=== PATIENT | male | born 1980 | race Caucasian/White ===

== ENCOUNTER 2018-09-15 14:48 | Emergency (ER) | payer BC ==
[2018-09-15] MEDS ORDERED: Ketorolac 30 MG/ML SDV IVPUSH ONE (14:56)
[2018-09-15] MEDS ORDERED: Tamsulosin 0.4 MG Cap.ER PO ONE (14:57)
[2018-09-15] MEDS ORDERED: Sodium Chloride 0.9% 1,000 ML IV ONE (14:59)
[2018-09-15 15:28] LABS: CHLORIDE,CL 103 mmol/L (98-107); SODIUM,NA 136 mmol/L (136-145)
[2018-09-15] MEDS ORDERED: Potassium Chloride 20 MEQ Tab.ER PO ONE (15:40)
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
== END 2018-09-15 16:40 | disposition home or self-care (01) ==
LOC: LL.ED 14:48
DX: N13.2 Hydronephrosis with renal and ureteral calculous obstruction (principal); Z79.899 Other long term (current) drug therapy
CPT/HCPCS: 36415; 74176; 80053; 81001; 85025; 96361; 96374; 99285; A9270-GY; J1885; J7030